=== PATIENT | male | born 1985 | race Caucasian/White ===

== ENCOUNTER 2019-01-04 19:00 | Emergency (ER) | payer MEDICAID, SELFPAY ==
[2019-01-04 19:04] VITALS: BP 123/78; PULSE 91; RESP 18; TEMP 36.7; O2SAT 99
--- NOTE | 2019-01-04 19:07 | W.ED.GENAD ---
Discharge Plan Disposition Patient Disposition: HOME Condition: Good Discharge Details Chief Complaint: DentalOral Clinical Impression: Tooth ache Primary Care Provider: Sarah Merchant ED Provider: Immanuel Cardona Home Meds and New Rx's Prescriptions: No Action No Known Home Meds RF: 0 Discharge Instructions Instructions: Toothache (ED) Additional Instructions: Please take 1000 mg of Tylenol every 6 hours and 800 mg of ibuprofen every 6 hours. Please follow-up immediately with your dentist. If you notice any worsening of your symptoms, or any new symptoms such as vomiting, diarrhea, fever, chills, shortness of breath, chest pain, numbness, weakness, or fainting , please return immediately to the emergency department for reevaluation. Please follow up with your primary care provider as soon as possible for reassessment and reevaluation. As always, it was a pleasure participating in your medical care today. Referrals: Sarah Merchant [Primary Care Provider] - Medical Decision Making This is a pleasant 33-year-old male who presents for evaluation of dental pain. He has notable chronic dental caries. Pain today is located in the top right frontal teeth over tooth #5. He has not yet seen a dentist. He is not taken any Tylenol or Motrin. Physical exam demonstrates no evidence of abscess. The area was blocked with a lidocaine bupivacaine 50-50 mixture, with 5 cc total, patient tolerated this well and had complete resolution of his symptoms. Recommend continue Tylenol and Motrin at home, close follow-up with dentist. We did give him a dental sheet for various providers in the area. We discussed red flags which to return. I have extensively reviewed the treatment plan and discharge instructions with the patient. I have addressed all patient concerns at this time. The patient was made aware of what symptoms to monitor for that would warrant a return to the emergency department. Discussed the plan with the patient, they demonstrate verbal understanding and agreement with our assessment and plan at this time. HPI General Date/Time Provider Initiated Documentation: 01/04/19 19:03. HPI Narrative: This is a 33-year-old male with no past medical history who presents today for right upper dental pain. Patient states that for the last few days he has had pain in his right upper teeth. He denies any fever, chills, headache, or discharge. He has a history of notable poor dentition, and has not seen a dentist for quite some time. He denies any other complaints. He has not taken any Tylenol or Motrin. He denies any other modifying factors. Related Data Home Medications Medication Instructions Recorded Confirmed Unknown [No Known Home Meds] 03/26/17 01/04/19 Allergies Allergy/AdvReac Type Severity Reaction Status Date / Time sulfamethoxazole Allergy Mild Hives Unverified 01/04/19 19:07 [From Bactrim] trimethoprim [From Bactrim] Allergy Mild Hives Unverified 01/04/19 19:07 venom-honey bee AdvReac Mild Swelling/Ed Unverified 01/04/19 19:07 [bee venom (honey bee)] carroll Review of Systems Review of Systems All systems reviewed & are unremarkable except as noted in HPI and below PFSH Social History Smoking/Tobacco Use Status: Current every day Tobacco Type: cigarettes Alcohol Intake: current Alcohol Intake frequency: a few times a month Drug use: Daily Do you feel safe at home: Yes Do you feel safe in your relationship?: Yes Exam Narrative Exam Narrative: 1.Const: Well-nourished, Well-developed, appearing stated age 2.Eyes: PERRL, no conjunctival injection, and symmetrical lids. 3.ENT: Atraumatic external nose and ears. Moist MM. Neck: Symmetric, trachea midline, No thyromegaly. Very poor dentition. Multiple dental caries over all of his teeth. The focal tooth of pain was tooth 5, no evidence of periapical abscess. No significant swelling Or redness. 4.CVS: +S1/S2, No murmurs or gallops. Peripheral pulses 2+ and equal in all extremities. Brisk capillary refill in all extremities. 5.RESP: Unlabored respiratory effort. Clear to auscultation bilaterally. No wheezes rales or rhonchi 6.GI: Soft, Nontender/Nondistended, No hepatosplenomegaly. No guarding or rebound. 7.MSK: Normocephalic/Atraumatic, Extremities w/o deformity or ttp No cyanosis or clubbing, Normal movement of all extremities 8.Skin: Warm, Dry. No rashes or lesions. 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 Sensation grossly intact, no focal neurologic deficits. 10.Psych: (AAO) x3. Appropriate mood and affect
[2019-01-04] MEDS: Acetaminophen 500 MG TAB (19:10)
[2019-01-04] MEDS: Ibuprofen 800 MG TAB (19:11)
[2019-01-04] MEDS: Bupivacaine 0.5% Pres-Free 30 ML VIAL (19:12)
== END 2019-01-04 19:14 | disposition home or self-care (01) ==
LOC: ER 19:18
PROVIDERS: Emergency Provider Student in an Organized Health Care Education/Training Program; PCP Family Medicine
DX: K08.89 Other specified disorders of teeth and supporting structures (principal)
CPT/HCPCS: 64400

== ENCOUNTER 2019-03-31 10:42 | Emergency (ER) | payer MEDICAID, SELFPAY ==
[2019-03-31 10:47] VITALS: BP 128/87; PULSE 64; RESP 16; TEMP 36.5; O2SAT 100
--- NOTE | 2019-03-31 10:58 | DI.US_ITS ---
SYMPTOM/DIAGNOSIS: LEG PAIN, SWELLING RIGHT LOWER EXTREMITY ULTRASOUND: The femoral and popliteal veins and visualized deep calf veins are freely compressible. There is thrombus visible in superficial veins in the calf, seen both anteriorly and posteriorly in multiple varicosities. There is no evidence of a Ingram's cyst. IMPRESSION: Superficial thrombophlebitis of the calf.
[2019-03-31] MEDS: Acetaminophen 325 MG TAB 650 MG PO (11:13)
[2019-03-31] MEDS: Ibuprofen 600 MG TAB PO (11:14)
--- NOTE | 2019-03-31 13:24 | ED.GENADUL_ITS ---
Discharge Plan Disposition Patient Disposition: HOME Condition: Stable Discharge Details Chief Complaint: GenMedical Clinical Impression: Superficial thrombophlebitis of right leg, Varicose veins of right leg with edema Primary Care Provider: Sarah Merchant ED Provider: Irvin Vickers Home Meds and New Rx's Prescriptions: New ibuprofen [IBU] 600 mg tablet 600 mg PO QID PRN (Reason: pain) Qty: 20 RF: 0 Discharge Instructions Instructions: Varicose Veins (ED), Superficial Thrombophlebitis (ED) Additional Instructions: Return immediately to the emergency department for new or worsening symptoms. You should wear the compression socks during the day and with activity otherwise you may remove them at night. Referral is being placed to [facility] vascular surgeon to follow-up on your varicose veins that are chronic. You should take ibuprofen every 6 hours for the next couple days and then as needed for discomfort. Stand Alone Forms: Work Release Referrals: [facility] [Outside] (Please follow-up with vascular surgery clinic as directed and arranged by their office) Discharge Data Discharge Date/Time-TO BE ENTERED AT DEPARTURE: 03/31/19 14:01 Medical Decision Making Patient presenting to the emergency department for chief complaint of right calf pain. Patient states ongoing history and issues with varicose veins since he was 12 years of age. He reports that varicose veins go from his right hip all the way down to his foot. He states he had seen multiple specialist in the past with plan to do surgery but no surgical interventions were ever performed. He does state a few years ago he did have a blood clot and needed to be on blood thinners for approximately 1 year. He states that over the past couple weeks he has noted increasing pain and discomfort and was concerned for secondary blood clot. Patient denies any fever chills, chest pain, difficulty breathing or other symptoms beyond the right lower extremity. Physical exam shows significant varicose veins from the right hip all the way down to the thigh and the lower leg. Significant portion of these are palpable, engorged, and some tenderness is noted to the posterior calf as well as the anterior varicose veins. Otherwise patient has full range of motion of the extremity, palpable p ulses, no other worrisome findings. I do feel that radiological imaging is warranted. Review of radiological imaging shows some thrombus in the superficial varicosities but no DVT is noted. Given significant varicose veins with engorgement and superficial thrombus did contact [facility] vascular surgery department. Was able to arrange follow-up appointment for patient and at this time they recommended NSAID therapy along with compression stockings to help with patient's symptoms. Patient is otherwise stable to be discharged home. Return precautions were discussed. After discussion of diagnosis and plan of care patient has no further needs, questions, or concerns and states clear understanding to return to the emergency department for any worsening symptoms. HPI General Mode of arrival: ambulatory . Date/Time Provider Initiated Documentation: 03/31/19 10:51 . Limitations to Documentation: no limitations . Information obtained by: patient and RN notes reviewed . History of Present Illness 33 year old M presents to the emergency department with the chief complaint of right leg pain, described as moderate and similar to prior episodes, with intensity rated at 7. Quality is described as aching, and is localized to the right and lower extremity. Patient proximal. Patient started experiencing this month(s) (2) and it has been constant. No relieving factors improve symptom(s), No exacerbating factors reported . Patient notes no other symptoms.. Patient did receive the following treatments prior to arrival, none Related Data Home Medications Medication Instructions Recorded Confirmed ibuprofen [IBU] 600 mg PO QID PRN #20 tab 03/31/19 Previous Rx's Medication Instructions Recorded ibuprofen [IBU] 600 mg PO QID PRN #20 tab 03/31/19 Allergies Allergy/AdvReac Type Severity Reaction Status Date / Time sulfamethoxazole Allergy Mild Hives Unverified 01/04/19 19:07 [From Bactrim] trimethoprim [From Bactrim] Allergy Mild Hives Unverified 01/04/19 19:07 venom-honey bee AdvReac Mild Swelling/Ed Unverified 01/04/19 19:07 [bee venom (honey bee)] carroll General Stated Complaint: GenMedical COREY: 3 Review of Systems Constitutional Denies chills and Denies fever(s) Cardiovascular Reports as per HPI, Denies chest pain, Reports leg edema and Denies dyspnea Respiratory Denies dyspnea Musculoskeletal Denies joint swelling, Denies numbness and Denies tingling Neurologic Denies numbness and Denies tingling PFSH Social History Smoking/Tobacco Use Status: Current every day Tobacco Type: cigarettes Alcohol Intake: current Alcohol Intake frequency: a few times a month Drug use: Daily Substance use type: marijuana Do you feel safe at home: Yes Do you feel safe in your relationship?: Yes Exam Const General: cooperative, healthy appearing, comfortable, no acute distress, not diaphoretic and not ill appearing Nutritional Appearance: average body habitus Orientation: alert, awake and oriented x3 Limitations: mental status not altered Neck Neck: no JVD Resp Effort & Inspection: normal respiratory effort and able to speak in complete sentences Auscultation: clear to auscultation bilaterally Cardio Jugular venous pressure: no JVD Palpation: normal PMI Rate: regular rate Rhythm: regular rhythm Heart Sounds: S1 normal, S2 normal, no click, no gallops, no murmurs and no rubs Pulses: posterior tibial pulses present Skin General skin exam: no rashes or lesions noted Extrem Right lower extremity: normal capillary refill and lower leg Details: tenderness Location: of the posterior calf, palpable cord and non-pitting edema; abnormal to inspection (Significant varicose veins from the hip all the way down into the foot) Course Vital Signs Temperature 36.5 C 03/31/19 10:47 Pulse 64 03/31/19 10:47 Respiratory Rate 16 03/31/19 10:47 Blood Pressure 128/87 03/31/19 10:47 Pulse Oximetry 100 03/31/19 10:47 Temperature 36.5 C 03/31/19 10:47 Temperature Source Temporal Artery Scan 03/31/19 10:47 Pulse 64 03/31/19 10:47 Respiratory Rate 16 03/31/19 10:47 Respiratory Effort Non-Labored 03/31/19 10:51 Blood Pressure 128/87 03/31/19 10:47 Blood Pressure Position Sitting 03/31/19 10:47 Pulse Oximetry 100 03/31/19 10:47 Oxygen Delivery Method Room Air 03/31/19 10:47 Oxygen Flow Rate 0 03/31/19 10:47
--- NOTE | 2019-03-31 13:48 | NUR.NOTE ---
Nursing Note: Size large thigh high michel applied to Right extremity. measurments are: Calf:40.5cm Thigh: 50.5cm Leg length: 71cm
[2019-03-31 13:57] VITALS: BP 121/84; PULSE 52; RESP 16; O2SAT 100
--- NOTE | 2019-03-31 13:58 | NUR.NOTE ---
Nursing Note: pt provided GORDO stocking education. pt demonstrates proper use
== END 2019-03-31 14:01 | disposition home or self-care (01) ==
PROVIDERS: Emergency Provider Nurse Practitioner Family; PCP Family Medicine
DX: I80.01 Phlebitis and thrombophlebitis of superficial vessels of right lower extremity (principal); I83.891 Varicose veins of right lower extremity with other complications
CPT/HCPCS: 99284; 93971

== ENCOUNTER 2021-07-05 11:24 | Emergency (ER) | payer MEDICAID, SELFPAY ==
[2021-07-05 11:37] VITALS: BP 121/75; PULSE 94; RESP 16; TEMP 36.2; O2SAT 100
--- NOTE | 2021-07-05 11:45 | DI.US_ITS ---
Exam(s) US LOWER EXTREMITY VENOUS RT EXAM: US LOWER EXTREMITY VENOUS RT CLINICAL HISTORY: pain, swelling TECHNIQUE: Grayscale, color, and doppler imaging of the deep venous system of the lower extremity w as performed. COMPARISON: US US lower extremity venous RT from 03/31/2019 FINDINGS: There is no evidence of intraluminal thrombus and there is normal compression and augmentation demons trated within the common femoral vein, femoral vein, and popliteal vein. In the ipsilateral calf the interrogated veins also exhibit normal compression/ augmentation properti es. There is, however, a superficial thrombophlebitis in the calf both medial lateral aspects 22 cm in le ngth. This is a branch off the saphenous. IMPRESSION: 1. No evidence of DVT in the right lower extremity. However, there is significant superficial throm bophlebitis in the right calf over a distance of 22 cm DATA REPOSITORY:
--- NOTE | 2021-07-05 11:55 | ED.GENADUL_ITS ---
Discharge Plan Disposition Patient Disposition: HOME Condition: Stable Discharge Details Clinical Impression: Superficial thrombophlebitis Primary Care Provider: Sarah Merchant ED Provider: Chang Hair Home Meds and New Rx's Prescriptions: New Eliquis DVT-PE Treat 30D Start 5 mg (74 tabs) tablets,dose pack See Rx Instructions .ROUTE .COMPLEX Qty: 74 RF: 0 Continued buprenorphine-naloxone [Suboxone] 8-2 mg film 8 film buccal DAILY RF: 0 No Action ibuprofen [IBU] 600 mg tablet 600 mg PO QID PRN (Reason: pain) Qty: 20 RF: 0 Discharge Instructions Additional Instructions: Your ultrasound showed a large superficial blood clot that you are being started on a blood thinner for I placed you on our follow up list to see a primary care provider within 1 week if you feel more ill, have chest pain/pressure or difficulty breathing return to the emergency department Medical Decision Making 36 yo male with hx of prior varicose veins in the lower extremities comes in with right lower leg pain. He states he was released from [facility] a few weeks ago and denies any trauma. He has had discomfort in the calf for a few days, no chest pain or dyspnea. He denies fevers/chills. He has pain over the lateral calf with a tender 3cm palpable structure over the lateral mid lower leg. Mild pedal edema of the calf, no erythema or warmth. Suspect superficial thrombophlebitis, will obtain u/s u/s shows large 22cm superficial thrombophlebitis, given it is over 5cm will start on anticoagulation. Discussed lovenox vs eliquis and he would prefer eliquis. Will place on f/u list as well to see pcp within a week. Return precau tions given. He has no erythema or other findings to suggest cellulitis so do not feel antibiotics indicated Differential Diagnosis Differential Diagnosis: dvt, superficial thrombophlebitis Medical Records Medical records reviewed: Yes I reviewed the patient's medical records. Imaging Data Radiologic Study: Attestation: I personally reviewed and interpreted this imaging study as follows: Imaging: CT Scan Radiologist's impression: IMPRESSION: 1. No evidence of DVT in the right lower extremity. However, there is significant superficial thrombophlebitis in the right calf over a distance of 22 cm HPI General Mode of arrival: ambulatory . Date/Time Provider Initiated Documentation: 07/05/21 11:33 . Limitations to Documentation: no limitations . Information obtained by: patient . History of Present Illness 36 year old M presents to the emergency department with the chief complaint of right leg pain, described as moderate, Quality is described as aching, and is localized to the right and lower extremity. Patient reports no radiation. Patient started experiencing this day(s) (5) and it has been constant. No relieving factors improve symptom(s), No exacerbating factors reported . Patient notes no other symptoms.. Patient did receive the following treatments prior to arrival, none Related Data Home Medications Medication Instructions Recorded Confirmed ibuprofen [IBU] 600 mg PO QID PRN #20 tab 03/31/19 07/05/21 apixaban [Eliquis DVT-PE Treat 30D See Rx Instructions .ROUTE 07/05/21 Start] .COMPLEX #74 dose pk buprenorphine-naloxone [Suboxone] 8 film BUCCAL DAILY 07/05/21 07/05/21 Previous Rx's Medication Instructions Recorded ibuprofen [IBU] 600 mg PO QID PRN #20 tab 03/31/19 apixaban [Eliquis DVT-PE Treat 30D See Rx Instructions .ROUTE 07/05/21 Start] .COMPLEX #74 dose pk Allergies Allergy/AdvReac Type Severity Reaction Status Date / Time sulfamethoxazole Allergy Mild Hives Unverified 07/05/21 11:40 [From Bactrim] trimethoprim [From Bactrim] Allergy Mild Hives Unverified 07/05/21 11:40 venom-honey bee AdvReac Mild Swelling/Ed Unverified 07/05/21 11:40 [bee venom (honey bee)] carroll General Stated Complaint: Vascular COREY: 3 Review of Systems All systems reviewed & are unremarkable except as noted in HPI and below Constitutional Constitutional: Denies chills, Denies fever(s) and Denies weakness Cardiovascular Cardiovascular: Denies chest pain and Denies dyspnea Respiratory Respiratory: Denies cough and Denies dyspnea Gastrointestinal Gastrointestinal: Denies abdominal pain, Denies nausea and Denies vomiting Neurologic Neurologic: Denies weakness Psychiatric Psychiatric: Denies depression [facility] Social History Smoking/Tobacco Use Status: Current every day Tobacco Type: cigarettes Smoking risk assessment performed?: Yes Alcohol Intake: former Drug use: Daily Substance use type: marijuana Do you feel safe at home: Yes Do you feel safe in your relationship?: Yes Exam Const General: no acute distress Orientation: alert HENMT Head: normal to inspection Ears: external ears normal General nose exam: external nose normal Mouth: moist mucous membranes Eyes General: appearance normal, both eyes and all related structures Neck Neck: normal visual inspection Resp Effort & Inspection: normal respiratory effort and able to speak in complete sentences Cardio Rate: regular rate Skin General skin exam: no rashes or lesions noted Neuro General: patient alert and patient oriented x3 Extrem General: full ROM and capillary refill normal Psych Mental Status: mental status grossly normal Course Vital Signs Vital signs: Vital Signs Temperature 36.2 C L 07/05/21 11:37 Pulse 94 H 07/05/21 11:37 Respiratory Rate 16 07/05/21 11:37 Blood Pressure 121/75 07/05/21 11:37 Pulse Oximetry 100 07/05/21 11:37 Temperature 36.2 C L 07/05/21 11:37 Temperature Source Tympanic 07/05/21 11:37 Pulse 94 H 07/05/21 11:37 Respiratory Rate 16 07/05/21 11:37 Respiratory Effort Non-Labored 07/05/21 11:40 Blood Pressure 121/75 07/05/21 11:37 Blood Pressure Position Sitting 07/05/21 11:37 Pulse Oximetry 100 07/05/21 11:37 Oxygen Delivery Method Room Air 07/05/21 11:37 Oxygen Flow Rate 0 07/05/21 11:37 Pain Level 6 07/05/21 11:37 PAWSS Pt Consumed Any Amount of Alcohol Within the Last 30 days OR had positive LEXI Upon Admission: No
[2021-07-05] MEDS: Acetaminophen 500 MG TAB 1000 MG PO (12:01)
--- NOTE | 2021-07-05 13:45 | NUR.NOTE ---
referraql to cm for follow up with pcp
[2021-07-05 18:27] VITALS: RESP 18
== END 2021-07-05 13:49 | disposition home or self-care (01) ==
PROVIDERS: Emergency Provider Emergency Medicine; PCP Family Medicine
DX: I80.01 Phlebitis and thrombophlebitis of superficial vessels of right lower extremity (principal)
CPT/HCPCS: 99284; 93971

== ENCOUNTER 2022-01-30 11:50 | Emergency (ER) | payer MEDICAID, SELFPAY ==
[2022-01-30 12:18] VITALS: BP 127/78; PULSE 77; RESP 16; TEMP 37.1; O2SAT 96
--- NOTE | 2022-01-30 12:30 | DI.US_ITS ---
Exam(s) US LOWER EXTREMITY VENOUS RT EXAM: US LOWER EXTREMITY VENOUS RT CLINICAL HISTORY: pain/swelling TECHNIQUE: Right lower extremity venous ultrasound performed using grayscale, color-flow, and spectr al Doppler analysis. COMPARISON: US US LOWER EXTREMITY VENOUS RT from 07/05/2021 FINDINGS: The right common femoral, femoral and popliteal veins demonstrate normal compressibility, augmentatio n, and color Doppler. The posterior tibial veins are patent. The saphenofemoral junction is unremark able. There is thrombus seen in superficial veins in the proximal to distal medial calf measuring 12 .9 cm in length. There is also thrombus seen in the superficial vein in the lateral thigh through to the mid calf measuring 15.1 cm in length. There is no evidence of a Ingram cyst. The soft tissues a re unremarkable. IMPRESSION: 1. No DVT. 2. Superficial thrombophlebitis. 3. Findings were discussed with the emergency department on the date of the examination. DATA REPOSITORY:
--- NOTE | 2022-01-30 12:40 | ED.GENADUL_ITS ---
Discharge Plan Disposition Patient Disposition: HOME Condition: Stable Discharge Details Clinical Impression: Superficial thrombophlebitis Primary Care Provider: Sarah Merchant ED Provider: Scott Keita Home Meds and New Rx's Prescriptions: New warfarin 5 mg tablet 5 mg PO DAILY Qty: 5 0RF enoxaparin [Lovenox] 100 mg/mL syringe 100 mg subcut Q12H 5 Days Qty: 10 0RF Continued buprenorphine-naloxone [Suboxone] 8-2 mg film 16 film buccal DAILY 0RF Label Comments: DISSOLVE 1 FILM UNDER THE TONGUE ONCE DAILY FOR 7 DAYS Discontinued ibuprofen [IBU] 600 mg tablet 600 mg PO QID PRN (Reason: pain) Qty: 20 0RF Eliquis DVT-PE Treat 30D Start 5 mg (74 tabs) tablets,dose pack See Rx Instructions .ROUTE .COMPLEX Qty: 74 0RF Rx Instructions: orally per package directions Discharge Instructions Instructions: Superficial Thrombophlebitis (ED) Additional Instructions: Your ultrasound reveals 2 separate segments greater than 5 cm of superficial thrombophlebitis which does require anticoagulation therapy. As you had stated he will not take Eliquis. You mentioned you are comfortable taking Lovenox and Coumadin. I have given you a dose of both medications here in the ER and provided you a prescription for the next 5 days. I have also made you an appointment for follow-up at [facility] with Dr. Ross at 8:30 AM on the of this month. As we discussed, this medication can cause bleeding so please seek medical attention if you happen to fall, or any mild car accident, etc. that she may not otherwise seek medical attention for. Watch for new or worsening symptoms and return to the ER for any concerns. Stand Alone Forms: Work Release Referrals: Paul Ross DO [OSTEOPATHIC DOCTOR] - Discharge Data Discharge Date/Time-TO BE ENTERED AT DEPARTURE: 01/30/22 15:08 Medical Decision Making 36-year-old gentleman with previously diagnosed extended superficial phlebitis greater than a 5 cm presents to the ER for acute on chronic right lower extremity pain. He states that he was provided Eliquis in the past but it caused him to have diarrhea so he stopped taking the medication. He denies chest pain or shortness of breath. Denies fever or recent trauma. 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 causes him more pain and he does not believe that he can do this job, is requesting a work note. Clinically this appears more of a DVT-superficial phlebitis presentation as opposed to cellulitis. Plan is to obtain routine screening laboratory values for further evaluation of leukocytosis, coags, and obtain ultrasound of the right lower extremity. He appears well, nontoxic, afebrile, pulse in the 70s, O2 sat 96% on room air. Laboratory values reveal no evidence of leukocytosis, coags are normal. Ultrasound reveals 2 separate segments of superficial thrombophlebitis, one measuring 12.9 and the other of 15.1 cm. This does meet criteria for anticoagulation. Discussed the importance of medication compliance with the patient. He does not want to take Eliquis but states that he will take Lovenox and Coumadin. A single dose of Lovenox and Coumadin given here in the ER, a prescription for the next 5 days was provided, and we are able to set him up with an appointment on the at 8:30 AM for reevaluation with a new primary care provider. Strict discharge and return precautions were provided. This documentation was generated using [employer] dictation system, please disregard any oddities of phrase or misspellings. Medical Records Medical records reviewed: Yes I reviewed the patient's medical records. Imaging Data Radiologic Study: Attestation: I personally reviewed and interpreted this imaging study as follows: Imaging: Ultrasound Radiologist's impression: This report is currently processing and HAS NOT BEEN OFFICIALLY SIGNED BY THE PHYSICIAN - ESTIMATED TIME OF APPROVAL IS 01/30/2022 15:07. Exam(s) US LOWER EXTREMITY VENOUS RT EXAM: US LOWER EXTREMITY VENOUS RT CLINICAL HISTORY: pain/swelling TECHNIQUE: Right lower extremity venous ultrasound performed using grayscale, color-flow, and spectral Doppler analysis. COMPARISON: US US LOWER EXTREMITY VENOUS RT from 07/05/2021 FINDINGS: The right common femoral, femoral and popliteal veins demonstrate normal compressibility, augmentation, and color Doppler. The posterior tibial veins are patent. The saphenofemoral junction is unremarkable. There is thrombus seen in superficial veins in the proximal to distal medial calf measuring 12.9 cm in length. There is also thrombus seen in the superficial vein in the lateral thigh through to the mid calf measuring 15.1 cm in length. There is no evidence of a Ingram cyst. The soft tissues are unremarkable. IMPRESSION: 1. No DVT. 2. Superficial thrombophlebitis. 3. Findings were discussed with the emergency department on the date of the examination. Lab Data Lab results reviewed: Yes I reviewed the patient's lab results. Labs: Laboratory Tests Range/Units 01/30/22 01/30/22 01/30/22 12:47 12:47 12:47 WBC (4.4-10.8) 10^3/uL 8.04 RBC (4.36-5.78) 10^6/uL 5.20 Hgb (13.5-17.5) g/dL 15.4 Hct (40.0-50.0) % 46.6 MCV (80-95) fL 89.6 MCH (27.0-33.0) pg 29.6 MCHC (32.0-36.0) % 33.0 RDW (11.8-14.1) % 14.2 H Plt Count (130-400) 10^3/uL 240 MPV (8.0-11.0) fL 9.0 Immature Gran % 0.2 Neutrophils % 71.8 Lymphocytes % 15.8 Monocytes % 9.2 Eosinophils % 2.5 Basophils % 0.5 Nucleated RBC % (0.0-0.3) % 0.0 Absolute Neutrophils (1.2-6.7) 10^3/uL 5.77 Absolute Lymphocytes (1.2-3.4) 10^3/uL 1.27 Absolute Monocytes (0.1-0.8) 10^3/uL 0.74 Absolute Eosinophils (0.0-0.7) 10^3/uL 0.20 Absolute Basophils (0.0-0.2) 10^3/uL 0.04 PT (9.3-11.0) sec 10.4 INR (0.9-1.1) 1.0 APTT (21.0-27.5) sec 27.1 Sodium (136-145) mmol/L 139 Potassium (3.5-5.1) mmol/L 3.9 Chloride (98-107) mmol/L 106 Carbon Dioxide (21.0-32.0) mmol/L 23.7 Anion Gap (3-11) mmol/L 9.3 BUN (7-18) mg/dL 9 Creatinine (0.70-1.30) mg/dL 0.9 Estimated GFR/1.73 m2 (mL/min/1.73m2) >= 60.00 Glucose (74-106) mg/dL 114 H Calcium (8.5-10.1) mg/dL 8.9 Total Bilirubin (0.2-1.0) mg/dL 1.1 H AST (15-37) U/L 35 ALT (16-63) U/L 69 H Alkaline Phosphatase (46-116) U/L 106 Total Protein (6.4-8.2) g/dL 7.5 Albumin (3.4-5.0) g/dL 4.1 HPI General Mode of arrival: ambulatory . Date/Time Provider Initiated Documentation: 01/30/22 12:34 . Limitations to Documentation: no limitations . Information obtained by: patient . History of Present Illness 36 year old M presents to the emergency department with the chief complaint of R leg swelling/pain, described as moderate, with intensity rated at 5. Quality is described as aching, and is localized to the right and lower extremity. Patient reports no radiation. Patient started experiencing this day(s) (5) and it has been constant. improves with Immobilization improves symptom(s), Movement worsens symptoms . Patient notes denies chest pain, cough and fever/chills. Patient did receive the following treatments prior to arrival, none Related Data Home Medications Medication Instructions Recorded Confirmed buprenorphine 8 mg-naloxone 2 mg 16 film BUCCAL DAILY 07/05/21 01/30/22 sublingual film (Suboxone) enoxaparin 100 mg/mL subcutaneous 100 mg SUBCUT Q12H 5 Days #10 ml 01/30/22 syringe (Lovenox) warfarin 5 mg tablet 5 mg PO DAILY #5 tab 01/30/22 Previous Rx's Medication Instructions Recorded enoxaparin 100 mg/mL subcutaneous 100 mg SUBCUT Q12H 5 Days #10 ml 01/30/22 syringe (Lovenox) warfarin 5 mg tablet 5 mg PO DAILY #5 tab 01/30/22 Allergies Allergy/AdvReac Type Severity Reaction Status Date / Time sulfamethoxazole Allergy Mild Hives Unverified 01/30/22 12:23 [From Bactrim] trimethoprim [From Bactrim] Allergy Mild Hives Unverified 01/30/22 12:23 venom-honey bee AdvReac Mild Swelling/Ed Unverified 01/30/22 12:23 [bee venom (honey bee)] carroll General Stated Complaint: Vascular COREY: 3 Review of Systems Constitutional Constitutional: Denies fever(s) and Denies weakness Cardiovascular Cardiovascular: Denies chest pain and Denies dyspnea Respiratory Respiratory: Denies cough and Denies dyspnea Musculoskeletal Musculoskeletal: Denies arthralgias Integumentary/Breasts Skin/Breast: Reports erythema Neurologic Neurologic: Denies weakness PFSH All Active Problems (Updated 01/30/22 @ 14:40 by MARLEE MANNING) Superficial thrombophlebitis (Acute) Superficial thrombophlebitis (Acute) Social History Smoking/Tobacco Use Status: Current every day Tobacco Type: cigarettes Smoking risk assessment performed?: Yes Alcohol Intake: former Drug use: Daily Substance use type: marijuana Do you feel safe at home: Yes Do you feel safe in your relationship?: Yes Exam Const General: cooperative, healthy appearing, comfortable and no acute distress Orientation: alert and awake HENOR Head: normal to inspection, normocephalic and atraumatic Mouth: moist mucous membranes Eyes General: appearance normal, both eyes and all related structures Conjunctivae: conjunctivae normal Neck Neck: normal visual inspection, full ROM, trachea midline and supple Resp Effort & Inspection: normal respiratory effort and able to speak in complete sentences Auscultation: clear to auscultation bilaterally Cardio Rate: regular rate Rhythm: regular rhythm Skin Lesions: no lesions Neuro General: patient alert, patient awake, patient oriented x3, moves all extremities and no focal motor deficits Cognition: normal cognition Speech: speech normal Gait: normal gait Motor: muscle tone normal throughout Sensory Exam: no sensory deficits noted Extrem General: full ROM, capillary refill normal and no pedal edema Other: Bilateral lower extremity mild edema and diffuse varicose veins. Right leg slightly worse than the left. Negative Homans' sign bilaterally. Normal capillary refill and dorsalis pedal pulses. Skin is intact. Right leg with diffuse mild discomfort, calf lateral aspect that does extend anteriorly with mild erythema, warmth, noncircumferential. There is no lymphangitic streaking. Psych Appearance: grossly normal Mental Status: mental status grossly normal Course Vital Signs Vital signs: Vital Signs Temperature 37.1 C 01/30/22 12:18 Pulse 77 01/30/22 12:18 Respiratory Rate 16 01/30/22 12:18 Blood Pressure 127/78 01/30/22 12:18 Pulse Oximetry 96 01/30/22 12:18 Temperature 37.1 C 01/30/22 12:18 Pulse 77 01/30/22 12:18 Respiratory Rate 16 01/30/22 12:18 Blood Pressure 127/78 01/30/22 12:18 Pulse Oximetry 96 01/30/22 12:18 Pain Level 7 01/30/22 12:18
[2022-01-30 12:53] LABS: Abs Immature Grans 0.02 10^3/uL (0.0-0.06); Absolute Basophil Count 0.04 10^3/uL (0.0-0.2); Absolute Lymphocyte Count 1.27 10^3/uL (1.2-3.4); Absolute Monocyte Count 0.74 10^3/uL (0.1-0.8); Absolute Neutrophil Count 5.77 10^3/uL (1.2-6.7); Basophils % 0.5; Eosinophils % 2.5; HCT 46.6 % (40.0-50.0); HGB 15.4 g/dL (13.5-17.5); Immature Grans % 0.2; Lymphocytes % 15.8; MCH 29.6 pg (27.0-33.0); MCV 89.6 fL (80-95); Monocytes % 9.2; Neutrophils % 71.8; Platelet Count 240 10^3/uL (130-400); RDW 14.2 % (11.8-14.1); RDW-SD 46.8 fL; WBC 8.04 10^3/uL (4.4-10.8)
[2022-01-30 13:06] LABS: ALT 69 U/L (16-63); AST 35 U/L (15-37); Albumin 4.1 g/dL (3.4-5.0); Alkaline Phosphatase 106 U/L (46-116); Anion Gap 9.3 mmol/L (3-11); BUN 9 mg/dL (7-18); Bilirubin, Total 1.1 mg/dL (0.2-1.0); CO2 23.7 mmol/L (21.0-32.0); CREATININE 0.9 mg/dL (0.70-1.30); Calcium 8.9 mg/dL (8.5-10.1); Chloride 106 mmol/L (98-107); Glucose 114 mg/dL (74-106); Potassium 3.9 mmol/L (3.5-5.1); Sodium 139 mmol/L (136-145); Total Protein 7.5 g/dL (6.4-8.2)
[2022-01-30 13:17] LABS: PTT Activated 27.1 sec (21.0-27.5); Prothrombin Time 10.4 sec (9.3-11.0)
[2022-01-30 14:35] VITALS: BP 131/86; PULSE 68; O2SAT 98
[2022-01-30] MEDS: Warfarin 5 MG TAB PO (15:02)
[2022-01-30] MEDS: Enoxaparin 100 MG/ML SYR SC (15:02)
== END 2022-01-30 15:08 | disposition home or self-care (01) ==
PROVIDERS: Emergency Provider Physician Assistant; PCP Family Medicine
DX: I80.01 Phlebitis and thrombophlebitis of superficial vessels of right lower extremity (principal)
CPT/HCPCS: 80053; 96372; 99284; 85025; 85610; 85730; 93971; 99283; J1650

== ENCOUNTER 2022-02-05 12:02 | Emergency (ER) | payer MEDICAID, SELFPAY ==
[2022-02-05 12:14] VITALS: BP 122/79; PULSE 80; RESP 18; TEMP 37.1; O2SAT 97
--- NOTE | 2022-02-05 12:30 | DI.US_ITS ---
Exam(s) US LOWER EXTREMITY VENOUS RT EXAM: US LOWER EXTREMITY VENOUS RT CLINICAL HISTORY: RLE increased swelling/pain. TECHNIQUE: Lower extremity venous ultrasound performed using grayscale, color-flow, and spectral Do ppler analysis. COMPARISON: No exams were available for comparison FINDINGS: The common femoral, femoral and popliteal veins demonstrate normal compressibility, augmentation, and color Doppler. The posterior tibial veins are patent. No saphenous vein thrombosis or is seen. The re is a dilated vein in the lateral mid thigh through proximal calf containing thrombus measuring ap proximately 14 cm in length. An additional dilated vein the medial calf with thrombus is seen measur ing approximately 10 cm in length. No hematoma or Ingram's cyst is seen. IMPRESSION: Superficial thrombophlebitis. No evidence of DVT. DATA REPOSITORY:
--- NOTE | 2022-02-05 12:30 | ED.GENADUL_ITS ---
Discharge Plan Disposition Patient Disposition: HOME Condition: Stable Discharge Details Clinical Impression: Superficial thrombophlebitis Primary Care Provider: Sarah Merchant ED Provider: Noa Rich Home Meds and New Rx's Prescriptions: Continued Xarelto 10 mg tablet 10 mg PO DAILY Qty: 35 0RF Rx Instructions: for 35 days naproxen 500 mg tablet 500 mg PO BID Qty: 60 0RF buprenorphine-naloxone [Suboxone] 8-2 mg film 16 film buccal DAILY 0RF Label Comments: DISSOLVE 1 FILM UNDER THE TONGUE ONCE DAILY FOR 7 DAYS Discharge Instructions Instructions: Superficial Thrombophlebitis (ED) Additional Instructions: Your ultrasound is reassuring and does not show any worsening of your superficial thrombophlebitis. Your increased discomfort is likely associated with you being so much more active. Standing for long periods of time will cause any swelling in the leg. While we do want you to try to be active and walk frequently, please then follow this by elevating to help with any swelling that may occur. Please keep your follow-up appointment with your primary care, please continue to move forward with working with hematology at [facility] [place]. Please continue with the Xarelto as previously prescribed. If he develops shortness of breath, chest pain or chills please seek care urgently once again Referrals: Sarah Merchant [Primary Care Provider] - Discharge Data Discharge Date/Time-TO BE ENTERED AT DEPARTURE: 02/05/22 14:33 Medical Decision Making Patient is a pleasant 36-year-old male presenting today with chief complaint of right lower extremity pain. He reports that he has had intermittent episodes of thrombophlebitis since the age of 12. He was seen here last week and diagnosed with recurrent superficial thrombophlebitis in 2 different sites both of which measured over 5 cm. At that time, patient was begun on Lovenox and Coumadin. Patient has not tolerated Eliquis well historically. He was subsequently seen by his primary care physician on Saturday. At that time, patient was transitioned to Xarelto. This has been a recurrent issue without known cause, patient was also referred to hematology at [facility]. He states that this morning he noted the leg felt more tight. Reports the swelling seems to be more along the lateral aspect and spreading up into the thigh. 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 Has had this more times historically. Denies any numbness or tingling. No chest pain or shortness of breath. Denies any fevers or chills. No recent trauma. No periods of being sedentary or recent travel. On exam, patient appears nontoxic. Lungs are clear, normal cardiac exam. Hemodynamically stable. Right lower extremity is somewhat pale compared to the contralateral side. He has diffuse purpleish markings which she states is birthmarks. He also has darkening following the In the calf and extending up to the lateral aspect of the thigh. Beyond that, it feels like the vein is more swollen consistent with venous congestion does not palpate any clot in this area. His toes are pink with intact capillary refill. 2+ distalpulses. Plan to move forward with repeat DVT study time. Patient does not have any findings to suggest PE or other embolic events. The leg does appear slightly pale, the feet are so pink and he has such good pulses. Very low suspicion for Arterial Involvement. Compartments are soft. Right calf is 1.5 cm larger in diameter than the contralateral side. Contacted by the meter/relay technician, they advised that if anything the length appears but certainly no worsening of the known superficial thrombophlebitis US reviewed by radiologist: FINDINGS: The common femoral, femoral and popliteal veins demonstrate normal compressibility, augmentation, and color Doppler. The posterior tibial veins are patent.? No saphenous vein thrombosis or is seen.? There is a dilated vein in the lateral mid thigh through proximal? calf containing thrombus measuring approximately 14 cm in length.? An additional dilated vein the medial calf with thrombus is seen measuring approximately 10 cm in length.? No hematoma or Ba ker's cyst is seen. IMPRESSION: Superficial thrombophlebitis.? No evidence of DVT.? Discussed these findings with the patient. He endorses being much more active yesterday than he has been, I am concerned that this may have caused increased swelling distributing up gravitational pull. This is likely associated with his increased discomfort. I encourage short episodes of mobility but try to balance this with elevation of lower extremity to help with discomfort after he is done ambulating. He will continue with the Xarelto. He will follow-up with hematology at [facility] regarding his recurrent superficial thrombophlebitis. Return precautions were discussed. All questions and concerns were addressed and he is in agreement this plan. HPI General Date/Time Provider Initiated Documentation: 02/05/22 12:04 . Limitations to Documentation: no limitations . Information obtained by: patient, RN notes reviewed and old records reviewed . History of Present Illness 36 year old M presents to the emergency department with the chief complaint of RLE pain and swelling in setting of known thrombophlebitis, described as mild, with intensity rated at 2. Quality is described as aching, and is localized to the right and lower extremity. Patient reports no radiation. Patient started experiencing this hour(s) and it has been constant. improves with No relieving factors improve symptom(s), Movement worsens symptoms . Patient notes no other symptoms.. Patient did receive the following treatments prior to arrival, other (Xarelto) Related Data Home Medications Medication Instructions Recorded Confirmed buprenorphine 8 mg-naloxone 2 mg 16 film BUCCAL DAILY 07/05/21 02/05/22 sublingual film (Suboxone) naproxen 500 mg tablet 500 mg PO BID #60 tab 02/01/22 02/05/22 rivaroxaban 10 mg tablet (Xarelto) 10 mg PO DAILY #35 tab 02/01/22 02/05/22 Previous Rx's Medication Instructions Recorded naproxen 500 mg tablet 500 mg PO BID #60 tab 02/01/22 rivaroxaban 10 mg tablet (Xarelto) 10 mg PO DAILY #35 tab 02/01/22 Allergies Allergy/AdvReac Type Severity Reaction Status Date / Time sulfamethoxazole Allergy Mild Hives Unverified 02/05/22 12:17 [From Bactrim] trimethoprim [From Bactrim] Allergy Mild Hives Unverified 02/05/22 12:17 venom-honey bee AdvReac Mild Swelling/Ed Unverified 02/05/22 12:17 [bee venom (honey bee)] carroll General Stated Complaint: Vascular COREY: 3 Review of Systems Constitutional Constitutional: Reports as per HPI, Denies chills, Denies fever(s), Denies headache(s) and Denies weakness ENT Ears, Nose, Mouth, and Throat: Denies headache(s) Cardiovascular Cardiovascular: Reports as per HPI, Denies chest pain, Denies dyspnea and Denies dyspnea on exertion Respiratory Respiratory: Reports as per HPI, Denies cough, Denies dyspnea and Denies dyspnea on exertion Musculoskeletal Musculoskeletal: Reports as per HPI and Denies tingling Integumentary/Breasts Skin/Breast: Reports as per HPI, Denies rash and Denies wounds Neurologic Neurologic: Reports as per HPI, Denies headache(s), Denies tingling, Denies paresthesias and Denies weakness Hematologic/Lymphatic Hematologic/Lymphatic: Reports as per HPI PFSH All Active Problems (Updated 02/05/22 @ 14:27 by SUSIE Gtz) Superficial thrombophlebitis (Acute) Social History Smoking/Tobacco Use Status: Current every day Tobacco Type: cigarettes Smoking risk assessment performed?: Yes Alcohol Intake: former Drug use: Daily Substance use type: marijuana Do you feel safe at home: Yes Do you feel safe in your relationship?: Yes Exam Const General: cooperative, healthy appearing, comfortable, no acute distress, well developed and well groomed Nutritional Appearance: average body habitus and well nourished Orientation: alert and awake Resp Effort & Inspection: normal respiratory effort, able to speak in complete sentences and no respiratory distress Auscultation: clear to auscultation bilaterally Cardio Rate: regular rate Rhythm: regular rhythm Heart Sounds: S1 normal and S2 normal Skin General skin exam: ecchymosis, no erythema, no induration, no purpura and pallor Neuro General: patient alert and patient awake Cognition: normal cognition Speech: speech normal Gait: normal gait Motor: muscle tone normal throughout Sensory Exam: no sensory deficits noted Extrem General: full ROM, normal gait, calf tenderness on the right, edema (1.5cm R>L) Laterality: right and other (2+ distal pulses, pink toes with intact capillary refill) Psych Appearance: grossly normal and well kempt Mental Status: mental status grossly normal Speech and Movement: speech and movement normal Course Vital Signs Vital signs: Vital Signs Temperature 37.1 C 02/05/22 12:14 Pulse 80 02/05/22 12:14 Respiratory Rate 18 02/05/22 12:14 Blood Pressure 122/79 02/05/22 12:14 Pulse Oximetry 97 02/05/22 12:14 Temperature 37.1 C 02/05/22 12:14 Temperature Source Oral 02/05/22 12:14 Pulse 80 02/05/22 12:14 Respiratory Rate 18 02/05/22 12:14 Respiratory Effort 02/05/22 12:20 Blood Pressure 122/79 02/05/22 12:14 Pulse Oximetry 97 02/05/22 12:14 Oxygen Delivery Method Room Air 02/05/22 12:14 Oxygen Flow Rate 0 02/05/22 12:14 Pain Level 2 02/05/22 12:14
[2022-02-05 13:07] VITALS: BP 117/74; PULSE 77; RESP 16; TEMP 36.7; O2SAT 96
== END 2022-02-05 14:33 | disposition home or self-care (01) ==
PROVIDERS: Emergency Provider Physician Assistant; PCP Family Medicine
DX: I80.01 Phlebitis and thrombophlebitis of superficial vessels of right lower extremity (principal)
CPT/HCPCS: 99284; 93971; 99283

== ENCOUNTER 2022-09-25 13:17 | Emergency (ER) | payer MEDICAID, SELFPAY ==
[2022-09-25 13:32] VITALS: BP 109/72; PULSE 70; RESP 18; TEMP 36.9; O2SAT 98
[2022-09-25 13:36] VITALS: RESP 18
--- NOTE | 2022-09-25 14:47 | ED.GENADUL_ITS ---
Discharge Plan Disposition Patient Disposition: Home Condition: Stable Discharge Details Clinical Impression: Influenza A Primary Care Provider: None,None ED Provider: Essie Santiago Home Meds and New Rx's Prescriptions: New albuterol sulfate [Proventil HFA] 90 mcg/actuation HFA aerosol inhaler 2 puff inhalation Q6H PRNQty: 6.7 0RF Continued buprenorphine-naloxone [Suboxone] 8-2 mg film 18 film buccal DAILY Label Comments: DISSOLVE 1 FILM UNDER THE TONGUE ONCE DAILY FOR 7 DAYS Discharge Instructions Instructions: H1N1 Influenza (ED) Additional Instructions: Take ibuprofen and Tylenol as needed for fever and chills Use your inhaler, 2 puffs every 4-6 hours as needed for cough, wheeze, shortness of breath Return earlier should you have any worsening complaints Stand Alone Forms: Work Release Discharge Data Discharge Date/Time-TO BE ENTERED AT DEPARTURE: 09/25/22 15:21 Medical Decision Making This 37-year-old male who is otherwise reportedly healthy who presents with flulike illness. Influenza A positive, vitals stable Given a new inhaler for home Zofran Return precautions discussed and patient expressed understanding Discharged home in stable condition with stable vitals Medical Records Medical records reviewed: Yes I reviewed the patient's medical records. Lab Data Lab results reviewed: Yes I reviewed the patient's lab results. HPI General Date/Time Provider Initiated Documentation: 09/25/22 14:24 . HPI Narrative: This 37-year-old male presents with upper respiratory symptoms including cough, runny nose, myalgias, fever, chills at home. States has been sick for 48 hours. Denies any chest pain or shortness of breath. Related Data Home Medications Medication Instructions Recorded Confirmed buprenorphine 8 mg-naloxone 2 mg 18 film buccal DAILY 07/05/21 09/25/22 sublingual film (Suboxone) albuterol sulfate 90 mcg/actuation 2 puff inhalation Q6H PRN #6.7 09/25/22 aerosol inhaler (Proventil HFA) grams Previous Rx's Medication Instructions Recorded albuterol sulfate 90 mcg/actuation 2 puff inhalation Q6H PRN #6.7 09/25/22 aerosol inhaler (Proventil HFA) grams Allergies Allergy/AdvReac Type Severity Reaction Status Date / Time sulfamethoxazole Allergy Mild Hives Unverified 09/25/22 13:34 [From Bactrim] trimethoprim [From Bactrim] Allergy Mild Hives Unverified 09/25/22 13:34 venom-honey bee AdvReac Mild Swelling/Ed Unverified 09/25/22 13:34 [bee venom (honey bee)] carroll General Stated Complaint: GenMedical COREY: 3 Review of Systems All systems reviewed & are unremarkable except as noted in HPI and below PFSH All Active Problems (Updated 09/25/22 @ 14:50 by SUSIE Padilla) Influenza A (Acute) Superficial thrombophlebitis (Acute) Social History Smoking/Tobacco Use Status: Current every day Tobacco Type: cigarettes Smoking risk assessment performed?: Yes Alcohol Intake: former Drug use: Daily Substance use type: marijuana Do you feel safe at home: Yes Do you feel safe in your relationship?: Yes Exam Const General: cooperative, comfortable and well developed HENMT Head: normal to inspection Eyes Sclera: sclerae normal Resp Effort & Inspection: normal respiratory effort Auscultation: clear to auscultation bilaterally Cardio Rate: regular rate Rhythm: regular rhythm GI Inspection: normal to inspection Skin General skin exam: no rashes or lesions noted Neuro General: patient alert and patient oriented x3 Course Vital Signs Vital signs: Vital Signs Temperature 36.9 C 09/25/22 13:32 Pulse 70 09/25/22 13:32 Respiratory Rate 18 09/25/22 13:32 Blood Pressure 109/72 09/25/22 13:32 Pulse Oximetry 98 09/25/22 13:32 Temperature 36.9 C 09/25/22 13:32 Temperature Source Temporal Artery Scan 09/25/22 13:32 Pulse 70 09/25/22 13:32 Respiratory Rate 18 09/25/22 13:36 Respiratory Effort Non-Labored 09/25/22 13:36 Respiratory Depth Normal 09/25/22 13:36 Respiratory Pattern Normal 09/25/22 13:36 Blood Pressure 109/72 09/25/22 13:32 Blood Pressure Position Sitting 09/25/22 13:32 Pulse Oximetry 98 09/25/22 13:32
== END 2022-09-25 15:21 | disposition home or self-care (01) ==
PROVIDERS: Emergency Provider Physician Assistant
DX: J10.1 Influenza due to other identified influenza virus with other respiratory manifestations (principal)
CPT/HCPCS: 99283